=== PATIENT | male | born 1950 | race Caucasian/White ===

== ENCOUNTER 2021-05-24 06:38 | Day surgery (SDC) | payer MEDICARE, OTHER ==
[2021-05-24] MEDS ORDERED: Midazolam 1 MG/ML 2 ML SDV IV ONE (06:39)
[2021-05-24] MEDS ORDERED: fentaNYL 100 MCG/2 ML SDV IV ONE (06:39)
[2021-05-24] MEDS ORDERED: Sodium Chloride 0.9% 10 ML Syringe FLUSH PRN (06:45)
[2021-05-24] MEDS ORDERED: Lactated Ringers 1,000 ML IV SCH (06:45)
[2021-05-24] MEDS ORDERED: acetaZOLAMIDE 500 MG Cap.ER PO ONE (08:30)
[2021-05-24] MEDS ORDERED: Lidocaine 1% with EPINEPHrine 1:100,000 20 ML MDV INJECT ONE (08:46)
--- NOTE | 2021-05-24 11:49 | OR ---
DATE OF OPERATION: 05/24/2021 SURGEON: Norah De La Torre MD PREOPERATIVE DIAGNOSES: 1. Visually significant cataract, right eye. 2. Epiphora, right eye. POSTOPERATIVE DIAGNOSES: 1. Visually significant cataract, right eye. 2. Epiphora, right eye. PROCEDURES PERFORMED: 1. Phacoemulsification with intraocular lens placement, right eye. 2. Punctal snip procedure, right eye. ASSISTANTS: None. ANESTHESIA: Local with sedation. COMPLICATIONS: None. BLOOD LOSS: None. IMPLANTS: A pre-loaded SUKHDEV ZCB00 22.5 diopter lens implanted. CDE: 3.36. DESCRIPTION OF PROCEDURE: After risks and benefits were reviewed with the patient, consent was obtained in the preoperative area, and the operative eye was marked with a surgical pen. In the preoperative area, a pledget was used to dilate the pupil consisting of a mixture of phenylephrine 10%, cyclopentolate 2%, moxifloxacin 0.5%, and bupivacaine 0.75%. The patient was taken to the operating room, where a time-out was performed, and the patient was placed under monitored anesthesia care. Topical tetracaine was used for anesthesia. The operative eye was prepped and draped for ophthalmic surgery, and the microscope was brought into position and focused. 1% lidocaine with epinephrine on a 30-gauge needle was injected near the right upper puncta. A 0.12 forceps and a Vannas scissors was used to snip the posterior aspect of the puncta to enlarge it. A paracentesis incision was made, followed by injection of preservative-free 1% lidocaine into the anterior chamber, followed by injection of Viscoat into the anterior chamber. A microkeratome blade was used to make a corneal limbal incision temporally. A cystotome was used to make the beginning of the capsulorrhexis, which was carried around 360 degrees in a curvilinear fashion using Utrata forceps. A Mooney cannula with BSS was used to hydrodissect and hydrodelineate the nucleus. The nucleus was removed in a divide and conquer manner using phacoemulsification. Irrigation and aspiration were used to remove the remaining cortical material. Provisc was used to inflate the capsular bag, and a pre-loaded SUKHDEV ZCB00 22.5 diopter lens, serial number [id number] was injected into the capsular bag. A Sinskey hook was used to position and center the lens. Next, irrigation and aspiration was used to remove any remaining viscoelastic and cortical material from the anterior chamber. BSS on a cannula was used to inflate the anterior chamber and hydrate the wound. The wound was checked and found to be watertight. 1 mg of Moxifloxacin was injected into the anterior chamber. Drapes were removed and the eye was cleaned. A drop of brimonidine 0.2% and a drop of TobraDex was placed. The eye was shielded, and the patient was taken to the recovery room in stable condition. /[id number] ANJELICA/REBECCA
== END 2021-05-24 09:20 | disposition home or self-care (01) ==
LOC: FB.SDS 06:38
PROVIDERS: ATTEND Ophthalmology
DX: H25.813 Combined forms of age-related cataract, bilateral (principal); H04.211 Epiphora due to excess lacrimation, right lacrimal gland; H04.123 Dry eye syndrome of bilateral lacrimal glands; D31.32 Benign neoplasm of left choroid; H40.013 Open angle with borderline findings, low risk, bilateral; I25.10 Atherosclerotic heart disease of native coronary artery without angina pectoris; E78.2 Mixed hyperlipidemia; E11.9 Type 2 diabetes mellitus without complications; I10 Essential (primary) hypertension; G47.33 Obstructive sleep apnea (adult) (pediatric); M10.9 Gout, unspecified; G25.0 Essential tremor; Z79.899 Other long term (current) drug therapy; Z87.891 Personal history of nicotine dependence; Z79.82 Long term (current) use of aspirin
CPT/HCPCS: 00142-QZ; 82947; A9270-GY; J2250; J3010; J7120; V2632

== ENCOUNTER 2021-06-07 06:56 | Day surgery (SDC) | payer MEDICARE, OTHER ==
[2021-06-07] MEDS ORDERED: Midazolam 1 MG/ML 2 ML SDV IV ONE (06:57)
[2021-06-07] MEDS ORDERED: fentaNYL 100 MCG/2 ML SDV IV ONE (06:57)
[2021-06-07] MEDS: Lactated Ringers 1,000 ML IV SCH (07:25)
[2021-06-07] MEDS: Sodium Chloride 0.9% 10 ML Syringe FLUSH PRN (07:30)
[2021-06-07] MEDS: acetaZOLAMIDE 500 MG Cap.ER PO ONE (08:34)
--- NOTE | 2021-06-07 12:06 | OR ---
DATE OF OPERATION: 06/07/2021 SURGEON: Norah De La Torre MD PREOPERATIVE DIAGNOSIS: Visually significant cataract, left eye. POSTOPERATIVE DIAGNOSIS: Visually significant cataract, left eye. PROCEDURES PERFORMED: Phacoemulsification with intraocular lens placement, left eye. ASSISTANTS: None. ANESTHESIA: Local with sedation. COMPLICATIONS: None. BLOOD LOSS: None. IMPLANTS: A pre-loaded DCB00 23.0 diopter lens implanted. CDE: 2.69. DESCRIPTION OF PROCEDURE: After risks and benefits were reviewed with the patient, consent was obtained in the preoperative area, and the operative eye was marked with a surgical pen. In the preoperative area, a pledget was used to dilate the pupil consisting of a mixture of phenylephrine 10%, cyclopentolate 2%, moxifloxacin 0.5%, and bupivacaine 0.75%. The patient was taken to the operating room, where a time-out was performed, and the patient was placed under monitored anesthesia care. Topical tetracaine was used for anesthesia. The operative eye was prepped and draped for ophthalmic surgery, and the microscope was brought into position and focused. A paracentesis incision was made, followed by injection of preservative-free 1% lidocaine into the anterior chamber, followed by injection of Viscoat into the anterior chamber. A microkeratome blade was used to make a corneal limbal incision temporally. A cystotome was used to make the beginning of the capsulorrhexis, which was carried around 360 degrees in a curvilinear fashion using Utrata forceps. A Mooney cannula with BSS was used to hydrodissect and hydrodelineate the nucleus. The nucleus was removed in a divide and conquer manner using phacoemulsification. Irrigation and aspiration were used to remove the remaining cortical material. Provisc was used to inflate the capsular bag, and a pre-loaded DCB00 23.0 diopter lens, serial number [id number] was injected into the capsular bag. A Sinskey hook was used to position and center the lens. Next, irrigation and aspiration was used to remove any remaining viscoelastic and cortical material from the anterior chamber. BSS on a cannula was used to inflate the anterior chamber and hydrate the wound. The wound was checked and found to be watertight. 1 mg of Moxifloxacin was injected into the anterior chamber. Drapes were removed and the eye was cleaned. A drop of brimonidine 0.2% and a drop of TobraDex was placed. The eye was shielded, and the patient was taken to the recovery room in stable condition. /[id number] ANJELICA/REBECCA
== END 2021-06-07 08:49 | disposition home or self-care (01) ==
LOC: FB.SDS 06:56
PROVIDERS: ATTEND Ophthalmology
DX: E11.36 Type 2 diabetes mellitus with diabetic cataract (principal); H25.813 Combined forms of age-related cataract, bilateral; H04.211 Epiphora due to excess lacrimation, right lacrimal gland; D31.32 Benign neoplasm of left choroid; H40.013 Open angle with borderline findings, low risk, bilateral; H04.123 Dry eye syndrome of bilateral lacrimal glands; I25.10 Atherosclerotic heart disease of native coronary artery without angina pectoris; E78.2 Mixed hyperlipidemia; G47.33 Obstructive sleep apnea (adult) (pediatric); I10 Essential (primary) hypertension; K21.9 Gastro-esophageal reflux disease without esophagitis; E11.43 Type 2 diabetes mellitus with diabetic autonomic (poly)neuropathy; M10.9 Gout, unspecified; J32.9 Chronic sinusitis, unspecified; G25.0 Essential tremor; Z79.4 Long term (current) use of insulin; Z79.84 Long term (current) use of oral hypoglycemic drugs; Z79.899 Other long term (current) drug therapy
CPT/HCPCS: 00142-QZ; 82947; A9270-GY; J2250; J3010; J7120; V2632